=== PATIENT | male | born 1965 | race Caucasian/White ===

== ENCOUNTER 2018-04-28 01:15 | Inpatient (IN) | payer MEDICAID ==
[~2018-04-28] VITALS: Ht 170.2 cm; Wt 74.8 kg
[2018-04-28 01:26] VITALS: BP 134/80
[2018-04-28] MEDS ORDERED: NACL 0.9% 1,000 ML IV ONE (02:36)
[2018-04-28] MEDS ORDERED: LIDOCAINE/EPI 2% 1:100000 20 ML VIAL INJ ONE (02:40)
[2018-04-28] MEDS ORDERED: KETOROLAC 30 MG/ML VIAL IVP ONE (02:40)
[2018-04-28 04:12] LABS: ANION GAP 13.6 (8-16); CREATININE 0.8 mg/dL (0.7-1.3); POTASSIUM 3.6 mmol/L (3.5-5.1); TOTAL BILIRUBIN 0.7 mg/dL (0.0-1.0)
[2018-04-28 04:13] LABS: ALBUMIN 3.1 g/dL (3.4-5.0)
[2018-04-28] MEDS ORDERED: PIPERACILLIN/TAZOBACTAM 3.375 GM in DEXTROSE 5% 50 ML IV ONE (04:15)
[2018-04-28] MEDS ORDERED: VANCOMYCIN 1,000 MG in DEXTROSE 5% 250 ML IV ONE (04:15)
[2018-04-28 04:27] LABS: BASOPHILS # (AUTO) 0.1 K/uL (0.00-0.22); BASOPHILS % (AUTO) 0.4 % (0.0-2.0); EOSINOPHILS # (AUTO) 0.1 K/uL (0-0.4); EOSINOPHILS % (AUTO) 0.4 % (0.0-4.0); HEMATOCRIT 40.6 % (36-52); HEMOGLOBIN 13.5 g/dL (12.0-18.0); LYMPHOCYTES # (AUTO) 2.1 K/uL (2.0-11.5); LYMPHOCYTES % (AUTO) 12.1 % (20.5-51.1); MEAN CORPUSCULAR HEMOGLOBIN 31 pg (27-31); MEAN CORPUSCULAR HGB CONC 33 g/dL (33-37); MEAN CORPUSCULAR VOLUME 92.3 fL (80-94); MONOCYTES # (AUTO) 1.3 K/uL (0.8-1.0); MONOCYTES % (AUTO) 7.7 % (1.7-9.3); NEUTROPHILS # (AUTO) 13.9 K/uL (1.8-7.7); NEUTROPHILS % (AUTO) 79.4 % (42.2-75.2); PLATELET COUNT (AUTO) 333 K/uL (140-450); RED CELL DISTRIBUTION WIDTH 12.2 % (11.6-13.7); WHITE BLOOD COUNT (AUTO) 17.5 K/uL (4.8-10.8)
[2018-04-28] MEDS ORDERED: VANCOMYCIN 1,000 MG VIAL ONE (04:37)
[2018-04-28] MEDS ORDERED: PIPERACILLIN/TAZOBACTAM 3.375 GM VIAL IV ONE (04:37)
[2018-04-28] MEDS ORDERED: ACETAMINOPHEN 325 MG TAB PO PRN (04:55)
[2018-04-28] MEDS ORDERED: DOCUSATE SODIUM 100 MG GELCAP PO PRN (04:55)
[2018-04-28] MEDS ORDERED: ONDANSETRON 4 MG/2 ML VIAL IM/IVP PRN (04:55)
[2018-04-28] MEDS ORDERED: VANCOMYCIN PER PHARMACY MC PRN (05:05)
[2018-04-28 08:50] VITALS: BP 114/71
[2018-04-28] MEDS: NACL 0.9% 1,000 ML IV SCH ×2 (09:52→14:54)
[2018-04-28] MEDS: LACTOBACILLUS RHAMNOSUS GG 1 EACH CAP PO SCH (09:52)
[2018-04-28 10:49] LABS: BARBITURATE, URINE NEG. ng/ml (NEG <=200); BENZODIAZEPINE, URINE NEG. ng/mL (NEG <=200); CANNABINOID, URINE NEG. ng/mL (NEG <=50); COCAINE, URINE NEG. ng/mL (NEG <=300); OPIATE, URINE POS. ng/mL (NEG <=2000); PHENCYCLIDINE SCREEN,URINE NEG. ng/mL (NEG <=25)
[2018-04-28 11:08] LABS: APPEARANCE,URINE CLEAR (CLEAR); BILIRUBIN,URINE NEGATIVE (NEGATIVE); BLOOD, URINE NEGATIVE (NEGATIVE); COLOR,URINE AMBER (YELLOW); LEUKOCYTE ESTERASE ,URINE NEGATIVE (NEGATIVE); NITRITE, URINE NEGATIVE (NEGATIVE); PH,URINE 6.5 (5.0-9.0); UGLUCOSE TRACE (NEGATIVE)
[2018-04-28 11:13] LABS: CHOL/HDL RATIO 4.3 (1-4.5); PHOSPHORUS 3.7 mg/dL (2.5-4.9); THYROID STIMULATING HORMONE 1.2 uIU/mL (0.34-3.74)
[2018-04-28 12:00] VITALS: BP 129/86
[2018-04-28] MEDS: PIPER/TAZO 3.375GM/D5W PREMIX 50 ML IV SCH ×2 (13:11→21:16)
[2018-04-28] MEDS: VANCOMYCIN 1,500 MG in DEXTROSE 5% 250 ML IV SCH (15:39)
[2018-04-28 16:00] VITALS: BP 115/83
[2018-04-28 20:00] VITALS: BP 112/86
[2018-04-28] MEDS: HYDROcodone/APAP 7.5/325 MG 1 TAB PO PRN (20:52)
[2018-04-29] VITALS: BP 115/85
[2018-04-29] MEDS: NACL 0.9% 1,000 ML IV SCH (01:22)
[2018-04-29] MEDS: HYDROcodone/APAP 7.5/325 MG 1 TAB PO PRN ×2 (01:37→22:04)
[2018-04-29] MEDS: KETOROLAC 30 MG/ML VIAL IVP PRN ×2 (02:22→15:14)
[2018-04-29] MEDS: VANCOMYCIN 1,500 MG in DEXTROSE 5% 250 ML IV SCH (02:36)
[2018-04-29 04:00] VITALS: BP 141/60
[2018-04-29] MEDS: PIPER/TAZO 3.375GM/D5W PREMIX 50 ML IV SCH ×3 (05:42→20:34)
[2018-04-29 07:53] LABS: BASOPHILS # (AUTO) 0.1 K/uL (0.00-0.22); BASOPHILS % (AUTO) 0.4 % (0.0-2.0); EOSINOPHILS # (AUTO) 0.1 K/uL (0-0.4); HEMATOCRIT 38.7 % (36-52); HEMOGLOBIN 12.9 g/dL (12.0-18.0); LYMPHOCYTES # (AUTO) 1.8 K/uL (2.0-11.5); LYMPHOCYTES % (AUTO) 13.7 % (20.5-51.1); MEAN CORPUSCULAR HEMOGLOBIN 31 pg (27-31); MEAN CORPUSCULAR HGB CONC 33 g/dL (33-37); MEAN CORPUSCULAR VOLUME 92.1 fL (80-94); MONOCYTES % (AUTO) 7.9 % (1.7-9.3); NEUTROPHILS # (AUTO) 10.1 K/uL (1.8-7.7); PLATELET COUNT (AUTO) 323 K/uL (140-450); RED CELL DISTRIBUTION WIDTH 12.3 % (11.6-13.7); WHITE BLOOD COUNT (AUTO) 13.2 K/uL (4.8-10.8)
[2018-04-29 08:00] VITALS: BP 137/87
[2018-04-29] MEDS: LACTOBACILLUS RHAMNOSUS GG 1 EACH CAP PO SCH (08:30)
[2018-04-29 08:33] LABS: ANION GAP 16.1 (8-16); CARBON DIOXIDE 23.6 mmol/L (21-32); CREATININE 0.5 mg/dL (0.7-1.3); POTASSIUM 3.7 mmol/L (3.5-5.1)
[2018-04-29 08:38] LABS: MAGNESIUM 2.1 mg/dL (1.8-2.4); PHOSPHORUS 3.1 mg/dL (2.5-4.9)
[2018-04-29] MEDS: DEXT 5% /NACL 0.9% 1,000 ML IV SCH ×2 (08:51→22:23)
[2018-04-29] MEDS ORDERED: LACTOBACILLUS RHAMNOSUS GG 1 EACH CAP PO SCH (09:00)
[2018-04-29] MEDS ORDERED: VANCOMYCIN 1,500 MG in NACL 0.9% 500 ML IV SCH (13:26)
[2018-04-29] MEDS ORDERED: VANCOMYCIN 1,500 MG in DEXTROSE 5% 250 ML IV SCH (15:00)
[2018-04-29 16:00] VITALS: BP 136/88
[2018-04-29] MEDS ORDERED: KETAMINE 500 MG/5 ML VIAL ONE (18:06)
[2018-04-29] MEDS ORDERED: MIDAZOLAM 2 MG/2 ML VIAL ONE (18:07)
[2018-04-29] MEDS ORDERED: LABETALOL 100 MG/20 ML VIAL ONE (18:21)
[2018-04-29] MEDS ORDERED: LIDOCAINE/EPI MPF 1%1:200000 30 ML VIAL INJ ONE (18:31)
[2018-04-29] MEDS ORDERED: BUPIVACAINE-MPF/EPI 0.25% 30 ML VIAL INJ ONE (18:32)
[2018-04-29] MEDS ORDERED: HYDROmorphone 1 MG/ML AMP IVP PRN (18:45)
[2018-04-29] MEDS ORDERED: ONDANSETRON 4 MG/2 ML VIAL IVP PRN (18:45)
[2018-04-29] MEDS ORDERED: ceFAZolin 1,000 MG VIAL ONE (18:48)
[2018-04-30] VITALS: BP 143/91
[2018-04-30] MEDS ORDERED: ZOLPIDEM 5 MG TAB PO PRN (01:15)
[2018-04-30] MEDS ORDERED: VANCOMYCIN 1,500 MG in NACL 0.9% 500 ML IV SCH (03:00)
[2018-04-30] MEDS: PIPER/TAZO 3.375GM/D5W PREMIX 50 ML IV SCH (04:12)
[2018-04-30] MEDS: HYDROcodone/APAP 7.5/325 MG 1 TAB PO PRN ×2 (05:35→10:52)
[2018-04-30 08:00] VITALS: BP 126/69
[2018-04-30] MEDS: LACTOBACILLUS RHAMNOSUS GG 1 EACH CAP PO SCH (08:32)
[2018-04-30] MEDS ORDERED: SULF-59 PO (11:45)
[2018-04-30] MEDS ORDERED: LACT10CA1 PO (11:46)
[2018-05-02 08:55] LABS: T4 (THYROXINE) 13.7 ug/dL (4.5 - 12.0)
== END 2018-04-30 11:50 | disposition left against medical advice (07) | DRG 816 ==
LOC: MED 01:15 → MTU 04:54
PROVIDERS: ADMIT General Practice; ATTEND General Practice
PROC: 0H9BXZZ Drainage of Right Upper Arm Skin, External Approach (ICD-10-PCS; principal; 2018-04-28)
PROC: 0J9D00Z Drainage of Right Upper Arm Subcutaneous Tissue and Fascia with Drainage Device, Open Approach (ICD-10-PCS; 2018-04-29)
DX: T40.1X1A Poisoning by heroin, accidental (unintentional), initial encounter (principal); A41.9 Sepsis, unspecified organism; G92 Toxic encephalopathy; E44.0 Moderate protein-calorie malnutrition; L03.113 Cellulitis of right upper limb; E86.0 Dehydration; Z53.21 Procedure and treatment not carried out due to patient leaving prior to being seen by health care provider; L02.413 Cutaneous abscess of right upper limb; F15.90 Other stimulant use, unspecified, uncomplicated; F11.90 Opioid use, unspecified, uncomplicated; T43.621A Poisoning by amphetamines, accidental (unintentional), initial encounter; Y92.89 Other specified places as the place of occurrence of the external cause; Z68.25 Body mass index [BMI] 25.0-25.9, adult; Z59.0 Homelessness; Z71.51 Drug abuse counseling and surveillance of drug abuser
CPT/HCPCS: 36415; 71045; 76536; 80048; 80053; 80202; 80305; 81003; 83036; 83605; 83735; 83880; 84100; 84436; 84443; 84479; 85025; 85610; 85730; 86886; 86900; 86901; 87040; 87070; 87075; 87081; 87086; 87205; 93005; 96365; 96366; 96367; 96375; 99285; J0690; J1885; J2001; J2250; J2405; J2543; J3370; J3490; J7030; J7042; J7060; Q0092

== ENCOUNTER 2019-11-12 20:58 | Emergency (ER) | payer MEDICAID ==
[~2019-11-12] VITALS: Ht 167.6 cm; Wt 68.0 kg
[~2019-11-12 20:58] MED LIST: LACT10CA1 PO; SULF-59 PO
[2019-11-12 21:35] VITALS: BP 130/84
--- NOTE | 2019-11-12 21:38 | NUR ---
BROUGHT TO BED 07 VIA W/C Addendum: 11/12/19 at 2141 by [facility] TO BED 11
--- NOTE | 2019-11-12 22:13 | NUR ---
Dr. Castellon examining patient.
--- NOTE | 2019-11-12 22:14 | NUR ---
MD DUVAL AT BEDSIDE
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
--- NOTE | 2019-11-12 22:45 | NUR ---
X-Ray at bedside.
--- NOTE | 2019-11-12 22:46 | NUR ---
X-RAY AT BEDSIDE
--- NOTE | 2019-11-13 01:51 | NUR ---
PT SLEEPING AT THIS TIME. RESPIRATIONS REGULAR AND UNLABORED.
--- NOTE | 2019-11-13 01:56 | NUR ---
Dr. Barba examining patient.
[2019-11-13] MEDS ORDERED: AMOXIL/CLAVULANATE 875/125 MG 1 TAB PO ONE (02:10)
[2019-11-13] MEDS ORDERED: IBUPROFEN 600 MG TAB PO ONE (02:15)
--- NOTE | 2019-11-13 02:40 | NUR ---
Patient discharged with v/s stable. Written and verbal after care instructions given and explained. Patient alert, oriented and verbalized understanding of instructions. Ambulatory with steady gait. All questions addressed prior to discharge. ID band removed. Patient advised to follow up with PMD. Rx of AUGMENTIN AND MOTRIN given. Patient educated on indication of medication including possible reaction and side effects. Opportunity to ask questions provided and answered.
[2019-11-13 02:43] VITALS: BP 128/83
== END 2019-11-13 02:40 | disposition home or self-care (01) ==
LOC: MED 20:58
DX: I80.8 Phlebitis and thrombophlebitis of other sites (principal); F19.10 Other psychoactive substance abuse, uncomplicated
CPT/HCPCS: 73090; 99283; Q0092

== ENCOUNTER 2022-03-07 19:06 | Emergency (ER) | payer MEDICAID ==
[~2022-03-07] VITALS: Ht 170.2 cm; Wt 71.9 kg
[2022-03-07 19:15] VITALS: BP 126/86
--- NOTE | 2022-03-07 19:52 | NUR ---
PT TO BED 7
--- NOTE | 2022-03-07 20:14 | NUR ---
57YR OLD MALE BIB SELF C/O L ARM PAIN. HAD SURGERY LAST MONTH. PAIN SINCE SURGERY. 7/8 SHARP PAIN. GOOD ROM GOOD CAP REFILL. PT IS A&OX4 SKIN WARM AND DRY. NO DEFORMITY DENIES ANY NEW INJURY OR TRAUMA. BED AT LOWEST LEVEL SIDE RAILS UP X1 NKDA
--- NOTE | 2022-03-07 20:21 | NUR ---
Dr. Osorio examining patient.
--- NOTE | 2022-03-07 20:38 | NUR ---
PA JEFF WITH PT
--- NOTE | 2022-03-07 21:32 | NUR ---
NO IV ACCESS. MULTIPLE ATTEMPTS. WILL ATTEMPT TO OBTAIN LABS . [facility]TER AT BEDSIDE
--- NOTE | 2022-03-07 21:46 | NUR ---
LABS OBTAINED AND SENT TO LAB
[2022-03-07 21:53] LABS: BASOPHILS % (AUTO) 0.2 % (0.0-2.0); EOSINOPHILS # (AUTO) 0.1 K/uL (0-0.4); EOSINOPHILS % (AUTO) 1.6 % (0.0-4.0); HEMATOCRIT 38.7 % (36-52); HEMOGLOBIN 13.1 g/dL (12.0-18.0); LYMPHOCYTES # (AUTO) 2.4 K/uL (2.0-11.5); LYMPHOCYTES % (AUTO) 30.1 % (20.5-51.1); MEAN CORPUSCULAR HEMOGLOBIN 31 pg (27-31); MEAN CORPUSCULAR HGB CONC 34 g/dL (33-37); MEAN CORPUSCULAR VOLUME 90.4 fL (80-94); MONOCYTES # (AUTO) 0.6 K/uL (0.8-1.0); MONOCYTES % (AUTO) 7.1 % (1.7-9.3); NEUTROPHILS # (AUTO) 4.9 K/uL (1.8-7.7); PLATELET COUNT (AUTO) 282 K/uL (140-450); RED BLOOD CELL COUNT(AUTO) 4.27 MIL/uL (4.20-6.10); RED CELL DISTRIBUTION WIDTH 13.1 % (11.6-13.7)
[2022-03-07 22:16] LABS: ALBUMIN 2.7 g/dL (3.4-5.0); ANION GAP 7.4 (8-16); CARBON DIOXIDE 34.2 mmol/L (21-32); CREATININE 0.6 mg/dL (0.6-1.3); POTASSIUM 3.6 mmol/L (3.5-5.1); TOTAL BILIRUBIN 0.3 mg/dL (0.0-1.0)
--- NOTE | 2022-03-07 22:17 | NUR ---
PT SLEEPING WITH HOB ELEVATED. 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 RESP EVEN AND UNLABORED.
--- NOTE | 2022-03-07 22:31 | NUR ---
Dr. Osorio examining patient.
[2022-03-07] MEDS ORDERED: SULF-58 PO (22:35)
--- NOTE | 2022-03-07 22:45 | NUR ---
Patient discharged with v/s stable. Written and verbal after care instructions given and explained. Patient verbalized understanding. Ambulatory with steady gait. All questions addressed prior to discharge. Advised to follow up with PMD.
--- NOTE | 2022-03-07 22:50 | NUR ---
The patient's care was reviewed and supervised by Claribel Reardon RN.
== END 2022-03-07 22:45 | disposition home or self-care (01) ==
LOC: MED 19:06
DX: L03.114 Cellulitis of left upper limb (principal)
CPT/HCPCS: 36415; 80053; 83605; 85025; 87040; 99283